=== PATIENT | female | born 1995 | race Caucasian/White ===

== ENCOUNTER → 2018-02-07 | Outpatient (CLI) | payer SELFPAY ==
--- NOTE | 2018-02-07 15:57 | RADIOLOGY IMAGING REPORT ---
FACILITY: [facility] - [place] PATIENT NAME: Zeinab Rae : 1995 MR: [id number] V: [id number] EXAM DATE: ORDERING PHYSICIAN: REILLY MENDOZA TECHNOLOGIST: Location: [facility] [place] Patient: Zeinab Rae : 1995 Visit/Account:[id number] Date of Sevice: 02/07/2018 3 views left ankle Indication: Left ankle injury yesterday Comparison: None Available Findings: Lateral soft tissue swelling is noted. Distal tibia and fibula are intact. Mortise is symmetric. T alar dome is unremarkable. No fracture or destructive osseous process IMPRESSION: 1. Soft tissue swelling without acute bony finding Report Dictated By: Ayo Fontana MD at 02/07/2018 3:53 PM Report E-Signed By: Ayo Fontana MD at 02/07/2018 3:54 PM WSN:[id number]
== END ==
LOC: RAD 15:25
PROVIDERS: ATTEND Nurse Practitioner Family
DX: M25.472 Effusion, left ankle (principal)

== ENCOUNTER → 2018-02-10 | Outpatient (CLI) | payer SELFPAY ==
--- NOTE | 2018-02-10 16:04 | RADIOLOGY IMAGING REPORT ---
FACILITY: [facility] - [place] PATIENT NAME: Zeinab Rae : 1995 MR: [id number] V: [id number] EXAM DATE: ORDERING PHYSICIAN: GIOVANY VELOZ TECHNOLOGIST: Location: [facility] - [place] Patient: Zeinab Rae : 1995 Visit/Account:[id number] Date of Sevice: 02/10/2018 Technique: KNEE 3 VIEW LEFT HISTORY: Left knee pain Comparison studies: None FINDINGS: There is no acute fracture. The alignment of the left knee is maintained. No knee joint eff usion. IMPRESSION: 1. No acute osseous process. Report Dictated By: Jericho Brariga DO at 02/10/2018 4:00 PM Report E-Signed By: Jericho Barriga DO at 02/10/2018 4:01 PM WSN:[id number]
== END ==
LOC: RAD 11:06
PROVIDERS: ATTEND Emergency Medicine Sports Medicine
DX: M25.562 Pain in left knee (principal)